=== PATIENT | female | born 1955 | race Caucasian/White ===

== ENCOUNTER 2020-07-02 00:33 | Outpatient (CLI) | payer MEDICARE, OTHER, SELFPAY ==
[2020-07-02 18:50] LABS: SARS-CoV-2 RNA PCR Negative
== END 2020-07-02 00:34 | disposition home or self-care (01) ==
LOC: ANHCOVIDDT 00:33
PROVIDERS: PCP Internal Medicine; Visit Provider Urology
DX: Z01.818 Encounter for other preprocedural examination (principal); Z20.828 Contact with and (suspected) exposure to other viral communicable diseases
CPT/HCPCS: 36415; 80048; C9803; U0003

== ENCOUNTER 2020-07-02 08:51 | Outpatient (CLI) | payer MEDICARE, OTHER, SELFPAY ==
[2020-07-02 09:45] LABS: Anion Gap 8 mmol/L (8-16); Blood Urea Nitrogen 26 mg/dL (7-17); Carbon Dioxide 26 mmol/L (22-30); Chloride 105 mmol/L (98-107); Estimated Glomerular Filt Rate > 60; Glucose 115 mg/dL (65-105); Potassium 4.6 mmol/L (3.4-5.0); Sodium 139 mmol/L (137-145)
== END 2020-07-02 08:52 | disposition home or self-care (01) ==
PROVIDERS: Anesthesiology; PCP Internal Medicine; Visit Provider Urology
DX: Z01.818 Encounter for other preprocedural examination (principal); E11.9 Type 2 diabetes mellitus without complications
CPT/HCPCS: 36415; 80048

== ENCOUNTER 2020-07-05 00:53 | Day surgery (SDC) | payer MEDICARE, OTHER, SELFPAY ==
--- NOTE | 2020-06-27 08:43 | P.HP_ITS ---
History of Present Illness History of Present Illness Consent: Risks, benefits, and alternatives have been discussed and questions answered. Patient agrees to proceed with procedure. Chief complaint: Hydronephrosis Narrative: Love Eagle is a 64 year old female recently in the ER at [facility] with right flank pain. Imaging revealed bilateral hydronephrosis and asymmetrical bladder wall thickening. Office cystoscopy wias unremarkable. Review of Systems Cardiovascular: Cardiovascular: Denies chest pain, Denies lightheadedness, Denies palpitations and Denies dyspnea Respiratory: Respiratory: Denies dyspnea Gastrointestinal: Gastrointestinal: Denies diarrhea, Denies nausea and Denies vomiting Genitourinary: Genitourinary: Denies hematuria and Denies dysuria Endocrine: Endocrine: Denies palpitations Exam Const: General: no acute distress Resp: Effort & Inspection: normal respiratory effort GI: Inspection: non-distended GI Palp: No abdominal tenderness and No Guarding due to palpation present (GI) Auscultation: normal bowel sounds Assessment and Plan Assessment and plan (1) Bilateral hydronephrosis: Code(s): N13.30 - Unspecified hydronephrosis Status: Acute Assessment and Plan: * Cystoscopy, bilateral retrograde pyelogram and bilateral ureteroscopy.
[2020-06-27 12:40] VITALS: BMI 21.7
--- NOTE | 2020-07-04 13:01 | WPDANESEPPF ---
Anes - Initial Pre Proc Eval Procedure: Operation Date: 07/05/20 08:30 Proposed Procedures p Cystoscopy, Bilateral Retrograde Pyelogram, Bilateral Ureteroscopy - Emil Rajan MD Date/Time: 07/04/20 13:01 Surgeon: Emil Rajan MD Pre Op Diagnosis: Hydronephrosis Patient Data Age: 65 Gender: F Height: 1.55 m Weight: 52.2 kg Allergies Allergy/AdvReac Type Severity Reaction Status Date / Time codeine AdvReac Mild Nausea and Verified 07/05/20 06:47 Vomiting lisinopril AdvReac Mild Brusing Verified 07/05/20 06:47 Sulfa (Sulfonamide AdvReac Mild Nausea Verified 07/05/20 06:47 Antibiotics) Home Medications Medication Instructions Recorded Confirmed Type aspirin [Adult Low Dose Aspirin] 81 mg PO DAILY 06/27/20 07/05/20 History cholecalciferol (vitamin D3) 25 mcg PO DAILY 06/27/20 07/05/20 History gemfibrozil 600 mg PO BID 06/27/20 07/05/20 History loperamide [Imodium] 2 mg PO QID PRN 06/27/20 07/05/20 History losartan 25 mg PO QAM 06/27/20 07/05/20 History metformin 1,000 mg PO BID 06/27/20 07/05/20 History pantoprazole 40 mg PO DAILY 06/27/20 07/05/20 History Patient hx anesthesia problems: post op nausea/vomiting Family hx anesthesia problems: none PMFSH Past Medical History Medical History (Updated 07/04/20 @ 13:02 by Pablo Ellison DO) Diabetes type 2, controlled GERD (gastroesophageal reflux disease) Hypertension IBS (irritable bowel syndrome) Mild cerebral palsy Walker as ambulation aid Surgical History Surgical History (Updated 07/04/20 @ 13:02 by Pablo Ellison DO) History of appendectomy History of History of hysterectomy Social History Social History Smoking packs per day: 0.5 Smoking cigarettes per day: 10.0 Years smoked: 30 Smoking pack-years: 15.00 Smoking status: Current every day smoker Tobacco type: cigarettes Living arrangements: alone Spiritual care concerns: No Anes - Eval Final PreProcedure Day of Procedure 07/04/20 13:01 Patient weight: normal Heart: regular rate and rhythm Lungs: clear to auscultation and normal air movement Airway: Mallampati scale class II Neurological: alert and oriented Last oral intake: >/= 8 hours ASA classification: III Emergent: no Anesthetic plan: proceed Anesthesia type and monitoring: general LMA and standard monitoring Informed Consent: The patient's anesthetic plan and its attendant risks and benefits were discussed with the patient/family/POA. Questions were solicited and answers provided to the satisfaction of the patient/family/POA.
--- NOTE | ~2020-07-05 | XR_ITS ---
EXAMINATION: XR retrograde pyelogram BI DATE: 07/05/2020 08:32 PHOTOGRAPHIC SUPERVISOR INDICATION: Evaluate for ureteral abnormality. TECHNIQUE: Multiple fluoroscopic images from bilateral retrograde pyelogram are submitted for review. 83 seconds of fluoroscopy. 171 fluoroscopic images. FINDINGS: There is normal contrast opacification of the ureters which are normal in course and calibe r. The renal collecting systems are unremarkable bilaterally with normal calyceal cupping. IMPRESSION: 1. Unremarkable bilateral retrograde pyelogram.. Correlate with real time procedural findings for de tails. Reviewed, dictated and finalized at location A. OGRAPHIC SUPERVISOR IMPRESSION: 1. Unremarkable bilateral retrograde pyelogram.. Correlate with real time proc edural findings for details.
[2020-07-05 06:41] VITALS: BP 112/79; PULSE 93; RESP 16; TEMP 36.2; O2SAT 100
[2020-07-05 07:07] LABS: Glucose Point of Care 81 (65-105)
[2020-07-05] MEDS: LACTATED RINGERS 1,000 ML 30 ML IV CONT (07:12)
--- NOTE | 2020-07-05 07:13 | WPDHPUPDATE1 ---
History and Physical Update Update Date/Time: 07/05/20 07:13 History and Physical has been reviewed, including an updated exam of the patient. There are NO changes in the patient's condition. Risks, benefits, and alternatives have been discussed and questions answered. Patient agrees to proceed with procedure.
[2020-07-05] MEDS: SCOPOLAMINE 1.5 MG PATCH TRANSDERM (07:48)
[2020-07-05] MEDS: FAMOTIDINE 20 MG/2 ML VIAL IV PUSH (07:48)
[2020-07-05] MEDS: ceFAZolin 2 GM/D5W 50 ML 2 GM/50 ML BAG IVPB (08:00)
[2020-07-05] MEDS: LIDOCAINE HCL 2% GEL UROJET 10 ML PKG MUCOUS MEM (08:10)
--- NOTE | 2020-07-05 08:32 | PM.PROC ---
Procedure Note - Detailed Date of procedure: 07/05/20 Pre-op diagnosis: Hydronephrosis Post-op diagnosis: other (Normal urinary tract (no hydronephrosis)) Procedure performed: 1. Cystoscopy with bilateral retrograde pyelography 2. Biltateral digital ureteroscopy Description of procedure: Patient is brought to the operative suite where she was prepped and draped in routine sterile fashion while in a dorsal lithotomy position. 2% xylocaine jelly was introduced intraurethrally and general anesthesia was provided. Cystoscopy is undertaken 19 F rigid cystoscope. Urine was collected for cytology. Bladder mucosa is normal without hyperemia. There is no intravesical foreign body or neoplasm. She has a single orthotopic ureteral orifices with clear efflux bilaterally. Eight F bulb tip catheter was used to obtain bilateral retrograde pyelogram which appear perfectly normal, without obstruction filling defect or other identifiable pathology. A 0.035 in glidewire was advanced into each ureter in each distal ureter was dilated with an 8 F 10 F dilator. Ureteroscopy was undertaken with a 7.5 F flexible digital ureteral scope. All calices comment are collecting system and ureters were endoscopically normal without mucosal abnormalities stones or other pathology. At this point scopes wires removed patient's taken to recovery good condition. Anesthesia: GLMA Surgeon: Emil Rajan MD Estimated blood loss (mL): 0 Drains: No Packing: No Pathology: yes (Urine cytology) Complications: No immediate complications Condition: stable Disposition: PACU
[2020-07-05 08:33] VITALS: BP 85/61; PULSE 93; RESP 18; O2SAT 98
[2020-07-05 08:47] LABS: Glucose Point of Care 105 (65-105)
[2020-07-05 09:03] VITALS: BP 116/72; PULSE 74; RESP 16; O2SAT 100
[2020-07-05 09:33] VITALS: BP 110/81; PULSE 83; RESP 16
[2020-07-05 10:03] VITALS: BP 130/75; PULSE 73; RESP 16
== END 2020-07-05 10:05 | disposition home or self-care (01) ==
PROVIDERS: PCP Internal Medicine; Visit Provider Urology
PROC: (CPT 52352; principal; 2020-07-05 08:30)
DX: N13.30 Unspecified hydronephrosis (principal); Z79.82 Long term (current) use of aspirin; Z79.84 Long term (current) use of oral hypoglycemic drugs; E11.9 Type 2 diabetes mellitus without complications; K21.9 Gastro-esophageal reflux disease without esophagitis; I10 Essential (primary) hypertension; K58.9 Irritable bowel syndrome, unspecified; G80.9 Cerebral palsy, unspecified; F17.210 Nicotine dependence, cigarettes, uncomplicated
CPT/HCPCS: 52005; 74420; 88108; A9270; C1758; C1769; J0690; J1100; J2001; J2250; J2405; J2704; J3010; J7120; Q9966

== ENCOUNTER 2021-10-23 08:55 | Outpatient (CLI) | payer MEDICARE, OTHER, SELFPAY ==
--- NOTE | 2021-10-23 11:00 | NEURO_ITS ---
Impression: # Complains of numbness of left lower extremity. # Normal nerve conduction study including peroneal and posterior tibial nerves and F-waves. # Needle/EMG exam not requested. # Clinical correlation recommended. Nerve Conduction Studies Anti Sensory Summary Table Stim Site NR Peak (ms) P-T Amp (?V) Site1 Site2 Delta-P (ms) Dist (cm) Markus (m/s) Left Sup Fibular Anti Sensory (Ant Lat Mall) 14 cm 3.6 5.0 14 cm Ant Lat Mall 3.6 16.0 44 Left Sural Anti Sensory (Lat Mall) Calf 3.7 12.1 Calf Lat Mall 3.7 16.0 43 Motor Summary Table Stim Site NR Onset (ms) O-P Amp (mV) Site1 Site2 Delta-0 (ms) Dist (cm) Markus (m/s) Left Peroneal Motor (Vastus Med) Ankle 4.7 2.0 Popit Ankle 8.4 36.0 43 Popit 13.1 2.0 Left Tibial Motor (Abd Morales Brev) Ankle 4.4 7.7 Knee Ankle 8.6 39.0 45 Knee 13.0 4.8 F Wave Studies NR F-Lat (ms) L-R F-Lat (ms) Left Peroneal (Mrkrs) (EDB) 50.98 Left Tibial (Mrkrs) (Abd Hallucis) 49.76 MTDD
== END 2021-10-23 08:56 | disposition home or self-care (01) ==
LOC: ANHNEURO 08:59
PROVIDERS: PCP Internal Medicine; Visit Provider Internal Medicine
DX: G62.9 Polyneuropathy, unspecified (principal)
CPT/HCPCS: 95908